=== PATIENT | female | born 1980 | race Caucasian/White ===

== ENCOUNTER 2018-02-05 07:06 | Inpatient (IN) | payer OTHER, BC ==
[~2018-02-05] VITALS: Ht 167.6 cm; Wt 98.6 kg
[~2018-02-05 07:06] MED LIST: BUPIVACAINE/PF-EPI 0.5% 1:200K ONE
[2018-02-05] MEDS ORDERED: GABAPENTIN 300 MG CAPSULE PO ONE (08:00)
[2018-02-05] MEDS ORDERED: ACETAMINOPHEN 500 MG TABLET PO ONE (08:00)
[2018-02-05] MEDS ORDERED: SCOPOLAMINE PATCH, 1.5MG PATCH.TD72 TD ONE ×2 (08:00→11:00)
[2018-02-05] MEDS ORDERED: FENTANYL PF 250 MCG/5ML ONE (08:09)
[2018-02-05] MEDS ORDERED: MIDAZOLAM 1 MG/ML, 2ML ONE (08:09)
[2018-02-05 08:22] VITALS: BP 116/82
[2018-02-05] MEDS ORDERED: LACTATED RINGERS 1,000 ML IV SCH ×2 (08:26→23:34)
[2018-02-05 08:42] LABS: HCG UR SG 1.026 (1.003-1.030)
[2018-02-05] MEDS ORDERED: SUCCINYLCHOLINE 20 MG/ML, 10ML ONE (09:25)
[2018-02-05] MEDS ORDERED: CEFAZOLIN 1,000 MG ONE (09:25)
[2018-02-05] MEDS ORDERED: PROPOFOL 10 MG/ML, 20ML ONE (09:25)
[2018-02-05] MEDS ORDERED: ROCURONIUM 10 MG/ML,10ML ONE (09:25)
[2018-02-05] MEDS ORDERED: ONDANSETRON 2MG/ML, 2ML ONE (09:25)
[2018-02-05] MEDS ORDERED: DEXAMETHASONE 4 MG/ML, 1ML ONE (09:25)
[2018-02-05] MEDS ORDERED: GLYCOPYRROLATE 0.2MG/1ML, 5ML ONE (09:25)
[2018-02-05] MEDS ORDERED: NEOSTIGMINE 1 MG/ML, 10ML ONE (09:25)
[2018-02-05] MEDS ORDERED: KETOROLAC 30 MG/1 ML IV PRN (10:00)
[2018-02-05] MEDS ORDERED: METOCLOPRAMIDE 5 MG/ML, 2ML IV PRN (10:00)
[2018-02-05] MEDS ORDERED: ONDANSETRON 2MG/ML, 2ML IVPush PRN (10:00)
[2018-02-05] MEDS ORDERED: PROMETHAZINE 25 MG/ML, 1ML IV PRN (10:00)
[2018-02-05] MEDS ORDERED: OXYcodone 5 MG/5 ML ORAL.SOL UDC PO PRN (10:00)
[2018-02-05] MEDS ORDERED: MEPERIDINE/PF 25MG/0.5ML IVPush PRN (10:00)
[2018-02-05] MEDS ORDERED: HYDROmorphone 2 MG/ML, 1ML IV PRN (10:00)
[2018-02-05] MEDS ORDERED: hydrALAzine 20 MG/ML, 1ML IV PRN (10:00)
[2018-02-05] MEDS ORDERED: ALBUTEROL SULFATE 2.5 MG/3 ML NPPB PRN (10:00)
[2018-02-05] MEDS ORDERED: LABETALOL 5MG/ML, 20ML IV PRN (10:00)
[2018-02-05] MEDS: LACTATED RINGERS 1,000 ML IV SCH ×2 (10:34→17:17)
[2018-02-05] MEDS ORDERED: GLYCOPYRROLATE 0.4 MG/2 ML, 2ML ONE (10:52)
[2018-02-05] MEDS ORDERED: FENTANYL PF 100 MCG/2ML ONE (10:53)
[2018-02-05] MEDS: FENTANYL PF 100 MCG/2ML IV PRN ×2 (10:57→11:04)
[2018-02-05] MEDS ORDERED: PROMETHAZINE 25 MG/ML, 1ML IM PRN ×2 (11:00→13:00)
[2018-02-05] MEDS ORDERED: DIPHENHYDRAMINE 50 MG/ML, 1ML IV PRN (11:00)
[2018-02-05] MEDS ORDERED: PHENOL THROAT SPRAY BOTTLE MM PRN (11:00)
[2018-02-05] MEDS ORDERED: DIPHENHYDRAMINE 25 MG CAPSULE PO PRN (11:00)
[2018-02-05] MEDS ORDERED: hydrALAzine 20 MG/ML, 1ML IVPush PRN (11:00)
[2018-02-05] MEDS ORDERED: PROMETHAZINE 12.5 MG SUPP PR PRN ×2 (11:00→13:00)
[2018-02-05] MEDS ORDERED: LORazepam 2 MG/ML, 1ML IV PRN (11:00)
[2018-02-05] MEDS ORDERED: ENALAPRILAT 1.25 MG/ML, 2ML IV PRN (11:00)
[2018-02-05] MEDS: FAMOTIDINE 20 MG/2 ML IVPush SCH ×2 (12:29→20:21)
[2018-02-05] MEDS: morphine SULFATE 10 MG/ML, 1ML IVPush PRN ×4 (12:30→18:02)
[2018-02-05 12:59] VITALS: BP 133/78
[2018-02-05] MEDS ORDERED: HYDROcodone/APAP 7.5-325MG/15ML UDC PO PRN (19:00)
[2018-02-05 19:29] VITALS: BP 110/74
[2018-02-05] MEDS: HYDROcodone/APAP 7.5-325MG/15ML UDC PO PRN (20:21)
[2018-02-05] MEDS: ONDANSETRON 2MG/ML, 2ML IVPush PRN (20:21)
[2018-02-05 23:54] VITALS: BP 109/76
[2018-02-06 04:12] VITALS: BP 139/72
[2018-02-06 05:47] LABS: BASOPHILS # (AUTO) 0.04 x10^3/uL (0-0.1); BASOPHILS % (AUTO) 0 % (0-1); EOSINOPHILS # (AUTO) 0.01 x10^3/uL (0-0.4); EOSINOPHILS % (AUTO) 0 % (1-7); LYMPHOCYTES # (AUTO) 2.45 x10^3/uL (1-3.4); LYMPHOCYTES % (AUTO) 22 % (22-44); MD NO; MEAN CORPUSCULAR HEMOGLOBIN 25.4 pg (27.0-34.8); MEAN CORPUSCULAR VOLUME 77.1 fL (80-100); MEAN PLATELET VOLUME 7.7 fL (7.4-10.4); MONOCYTES # (AUTO) 0.81 x10^3/uL (0.2-0.8); MONOCYTES % (AUTO) 7 % (2-9); NEUTROPHILS # (AUTO) 8.02 x10^3/uL (1.8-6.8); NEUTROPHILS % (AUTO) 71 % (42-75); PLATELET COUNT 236 x10^3/uL (130-400); RED CELL DISTRIBUTION WIDTH 15.3 % (9.6-15.2)
[2018-02-06] MEDS: ONDANSETRON 2MG/ML, 2ML IVPush PRN (05:52)
[2018-02-06] MEDS: HYDROcodone/APAP 7.5-325MG/15ML UDC PO PRN (05:52)
[2018-02-06 06:02] LABS: ALBUMIN 3.3 g/dL (3.4-5.0); ANION GAP 7 mmol/L (5-15); CALCIUM 8.7 mg/dL (8.5-10.1); CHLORIDE 107 mmol/L (98-107); CREATININE 0.71 mg/dL (0.55-1.02)
[2018-02-06] MEDS: morphine SULFATE 10 MG/ML, 1ML IVPush PRN (06:16)
[2018-02-06 06:54] VITALS: BP 118/79
[2018-02-06] MEDS ORDERED: KETOROLAC 30 MG/1 ML IVPush SCH (08:00)
[2018-02-06] MEDS: FAMOTIDINE 20 MG/2 ML IVPush SCH (08:41)
[2018-02-06] MEDS: OXYcodone IR 5MG TABLET PO PRN ×2 (08:41→12:35)
[2018-02-06] MEDS ORDERED: OXYC5CAP2 PO (13:37)
== END 2018-02-06 13:47 | disposition home or self-care (01) | DRG 621 ==
LOC: ORIP 07:06 → 4NOR 11:55 → DCLOUNGE 02-06 13:32
PROVIDERS: ADMIT Thoracic Surgery (Cardiothoracic Vascular Surgery); ATTEND Thoracic Surgery (Cardiothoracic Vascular Surgery)
PROC: 0BQT4ZZ Repair Diaphragm, Percutaneous Endoscopic Approach (ICD-10-PCS; 2018-02-05)
PROC: 8E0W4CZ Robotic Assisted Procedure of Trunk Region, Percutaneous Endoscopic Approach (ICD-10-PCS; 2018-02-05)
PROC: 0DB64Z3 Excision of Stomach, Percutaneous Endoscopic Approach, Vertical (ICD-10-PCS; principal; 2018-02-05 09:00)
DX: E66.01 Morbid (severe) obesity due to excess calories (principal); E78.00 Pure hypercholesterolemia, unspecified; K44.9 Diaphragmatic hernia without obstruction or gangrene; R32 Unspecified urinary incontinence; Z68.35 Body mass index [BMI] 35.0-35.9, adult; G89.29 Other chronic pain; M54.9 Dorsalgia, unspecified
CPT/HCPCS: 36415; J3490; S0028; 80048; 81025; 82040; 85025; 93005; J0690; J1100; J1885; J2250; J2405; J2704; J2710; J3010; J0330; J2270; J7120